=== PATIENT | female | born 1995 | race Caucasian/White ===

== ENCOUNTER 2021-01-19 17:00 | Emergency (ER) | payer BC, OTHER ==
[2021-01-19 17:05] VITALS: BP 131/68; PULSE 98
[2021-01-19] MEDS ORDERED: cefTRIAXone 1 GM Vial IM ONE (17:17)
--- NOTE | 2021-01-19 17:26 | EDM.PDOC ---
ED HPI GENERAL MEDICAL PROBLEM - General Chief Complaint: Bite:Animal, Insect Stated Complaint: cat bite Time Seen by Provider: 01/19/21 17:08 Source of Information: Reports: Patient History Limitations: Reports: No Limitations - History of Present Illness INITIAL COMMENTS - FREE TEXT/NARRATIVE: Patient comes to ER with right hand pain and swelling after being bit by a cat last night. No drainage/fevers. Right Hand Pain Score (Numeric/FACES): 3 - Related Data Allergies Allergy/AdvReac Type Severity Reaction Status Date / Time nickel Allergy Edema Verified 01/19/21 17:01 Home Meds: Home Meds Amoxicillin/Potassium Clav [Augmentin 875-125 Tablet] 1 each PO BID #8 tablet 01/19/21 [Rx] Past Medical History - Past Health History Medical/Surgical History: Denies Medical/Surgical History Musculoskeletal History: Reports: Fracture Social & Family History - Tobacco Use Tobacco Use Status *Q: Current Every Day Tobacco User Years of Tobacco use: 3 Packs/Tins Daily: 0.3 Second Hand Smoke Exposure: Yes - Caffeine Use Caffeine Use: Reports: Coffee, Soda - Recreational Drug Use Recreational Drug Use: No ED ROS GENERAL - Review of Systems Review Of Systems: Comprehensive ROS is negative, except as noted in HPI. ED EXAM, ANIMAL BITE - Physical Exam Exam: See Below Exam Limited By: No Limitations General Appearance: Alert, WD/WN, No Apparent Distress Eye Exam: Bilateral Eye: EOMI, PERRL Ears: Hearing Grossly Normal Throat/Mouth: Normal Voice, No Airway Compromise Head: Atraumatic, Normocephalic Neck: Supple Respiratory/Chest: No Respiratory Distress (Female) Exam: Deferred Rectal (Female) Exam: Deferred Extremities: Normal Capillary Refill, Other (Right hand: swelling and erythema noted medial palm near base of thumb. Wounds consistent with cat bite noted. No drainage. Able to move fingers/wrist. ) Neurological: Alert, Oriented, Normal Cognition Psychiatric: Normal Affect, Normal Mood Skin Exam: Warm/Dry Course - Vital Signs Last Recorded V/S: Last Vital Signs Temp 37.1 C 01/19/21 17:04 Pulse 98 01/19/21 17:04 Resp 18 01/19/21 17:04 BP 131/68 01/19/21 17:04 Pulse Ox 100 01/19/21 17:04 - Orders/Labs/Meds Meds: Medications Discontinued Medications Generic Name Dose Route Start Last Admin Trade Name Hardy PRN Reason Stop Dose Admin Ceftriaxone Sodium 1 gm 01/19/21 17:17 Ceftriaxone 1 Gm Vial IM 01/19/21 17:18 ONETIME ONE Lidocaine HCl 5 ml 01/19/21 17:17 Lidocaine 1% 5 Ml Sdv INJECT 01/19/21 17:18 ONETIME ONE - Re-Assessments/Exams Free Text/Narrative Re-Assessment/Exam: 01/19/21 17:31 Swelling and redness around cat bite consistent with early cellulitis. Plan at this time is to update tetanus and also give Rocephin IM. Will start patient on Augmentin. Precautions reviewed. To return for second dose of Rocephin and recheck tomorrow if any worsening is noted. To follow up later this week for wound check with PCP. Departure - Departure Time of Disposition: 17:30 Disposition: Home, Self-Care 01 Condition: Good Clinical Impression: Cellulitis of hand, right Cat bite of hand Qualifiers: Encounter type: initial encounter Laterality: right Qualified Code(s): S61.451A - Open bite of right hand, initial encounter - Discharge Information *PRESCRIPTION DRUG MONITORING PROGRAM REVIEWED*: Not Applicable *COPY OF PRESCRIPTION DRUG MONITORING REPORT IN PATIENT KIMBERLI: Not Applicable Prescriptions: Amoxicillin/Potassium Clav [Augmentin 875-125 Tablet] 1 each PO BID #8 tablet Instructions: Cellulitis, Adult, [id number] Forms: ED Department Discharge Additional Instructions: Watch hand closely. OK to do warm soaks for 15-20min 2-3 times a day as we described. Epsom salts ok. If any worse tomorrow recommend second dose of Rocephin tomorrow afternoon. Take Augmentin every 12 hours for 7 days. Get a recheck arranged at clinic for or Wednesday. May need to consider extending antibiotics if infection has not completely improved at that time. Sepsis Event Note (ED) - Evaluation Sepsis Screening Result: No Definite Risk - Focused Exam Vital Signs: Vital Signs Temp Pulse Resp BP Pulse Ox 01/19/21 17:04 37.1 C 98 18 131/68 100
[2021-01-19] MEDS ORDERED: Diphtheria,Pertussis(Acell),Tetanus Vaccine 0.5 ML Syringe IM ONE (17:28)
== END 2021-01-19 17:40 | disposition home or self-care (01) ==
LOC: LL.ED 17:00
DX: S61.451A Open bite of right hand, initial encounter (principal); L03.113 Cellulitis of right upper limb; Z72.0 Tobacco use; Z91.048 Other nonmedicinal substance allergy status; Z23 Encounter for immunization; V03.10XA Pedestrian on foot injured in collision with car, pick-up truck or van in traffic accident, initial encounter
CPT/HCPCS: 90471; 90715; 96372; 99283; J0696